=== PATIENT | female | born 1930 | race African-American/Black ===

== ENCOUNTER 2017-05-11 20:18 | Emergency (ER) | payer SELFPAY ==
[2017-05-11 20:27] VITALS: BP 105/44; PULSE 82; TEMP 97.2; BMI 19.3
--- NOTE | 2017-05-11 21:28 | PDOC ---
History of Present Illness - General History Source: Patient Exam Limitations: No Limitations - History of Present Illness Initial Comments: The patient is an 86 yo F with a past medical history significant for HTN who presents from clinic with increased BP and abnormal labs. The patient states her BP has been getting higher than her baseline. She is unaware as to which labs were found to be abnormal. She also endorses generalized weakness. The patient denies headache, nausea, vomiting, diarrhea, SOB. The patient denies frequency, dysuria. The patient denies chest pain, palpitations and lightheadedness. <OjJessica - Last Filed: 05/11/17 23:03> - General History Source: Patient <Jimmy Grady - Last Filed: 05/12/17 00:16> - General Chief Complaint: Weakness Stated Complaint: BLOOD PRESSURE PROBLEM Time Seen by Provider: 05/11/17 20:46 Past History <Imtiazjulio cJessica - Last Filed: 05/11/17 23:03> - Past Medical History Anemia: Yes HTN: Yes - Immunization History Immunization Up to Date: Yes - Psycho/Social/Smoking Cessation Hx Anxiety: No Suicidal Ideation: No Smoking History: Never smoked Have you smoked in the past 12 months: No Number of Cigarettes Smoked Daily: 0 Information on smoking cessation initiated: No Hx Alcohol Use: No Drug/Substance Use Hx: No Substance Use Type: None <FernandoJimmy ocasio - Last Filed: 05/12/17 00:16> - Past Medical History Allergies/Adverse Reactions: Allergies Allergy/AdvReac Type Severity Reaction Status Date / Time No Known Allergies Allergy Verified 05/11/17 20:27 Home Medications: Ambulatory Orders Aspirin [Aspirin EC] 81 mg PO DAILY 05/11/17 Atenolol [Tenormin -] 25 mg PO DAILY 05/11/17 Clopidogrel Bisulfate [Plavix -] 75 mg PO DAILY 05/11/17 Nifedipine [Procardia Xl] 30 mg PO DAILY 05/11/17 Review of Systems - Review of Systems Able to Perform ROS?: Yes Comments:: CONSTITUTIONAL: +generalized weakness Absent: fever, chills, diaphoresis, malaise, loss of appetite HEENT: Absent: rhinorrhea, nasal congestion, throat pain, throat swelling, difficulty swallowing, mouth swelling, ear pain, eye pain, visual Changes CARDIOVASCULAR: +high BP Absent: chest pain, syncope, palpitations, irregular heart rate, lightheadedness , peripheral edema RESPIRATORY: Absent: cough, shortness of breath, dyspnea with exertion, orthopnea, wheezing, stridor, hemoptysis GASTROINTESTINAL: Absent: abdominal pain, abdominal distension, nausea, vomiting, diarrhea, constipation, melena, hematochezia GENITOURINARY: Absent: dysuria, frequency, urgency, hesitancy, hematuria, flank pain, genital pain MUSCULOSKELETAL: Absent: myalgia, arthralgia, joint swelling SKIN: Absent: rash, itching, pallor NEUROLOGIC: Absent: headache, focal weakness or paresthesias, dizziness, unsteady gait, seizure, mental status changes, bladder or bowel incontinence PSYCHIATRIC: Absent: anxiety, depression, suicidal or homicidal ideation, hallucinations. <Jessica Mcwilliams - Last Filed: 05/11/17 23:03> *Physical Exam - Vital Signs Last Vital Signs Temp Pulse Resp BP Pulse Ox 97.2 F L 82 16 105/44 98 05/11/17 20:21 05/11/17 20:21 05/11/17 20:21 05/11/17 20:21 05/11/17 20:21 - Physical Exam Comments: GENERAL: Well developed, well nourished. Awake and alert. No acute distress. HEENT: Normocephalic, atraumatic. PERRLA, EOMI. No conjunctival pallor. Sclera are non- icteric. Moist mucous membranes. Oropharynx is clear. NECK: Supple. Full ROM. No JVD. Carotid pulses 2+ and symmetric, without bruits. No thyromegaly. No lymphadenopathy. CARDIOVASCULAR: Regular rate and rhythm. No murmurs, rubs, or gallops. Distal pulses are 2+ and symmetric. PULMONARY: No evidence of respiratory distress. Lungs clear to auscultation bilaterally. No wheezing, rales or rhonchi. ABDOMINAL: Soft. Non-tender. Non-distended. No rebound or guarding. No organomegaly. Normoactive bowel sounds. MUSCULOSKELETAL Normal range of motion at all joints. No bony deformities or tenderness. No CVA tenderness. EXTREMITIES: No cyanosis. No clubbing. No edema. No calf tenderness. SKIN: Warm and dry. Normal capillary refill. No rashes. No jaundice. NEUROLOGICAL: No gross focal neurological deficits. PSYCHIATRIC: Cooperative. Good eye contact. Appropriate mood and affect. <OjJessica - Last Filed: 05/11/17 23:03> - Vital Signs Last Vital Signs Temp Pulse Resp BP Pulse Ox 97.2 F L 82 16 105/44 98 05/11/17 20:21 05/11/17 20:21 05/11/17 20:21 05/11/17 20:21 05/11/17 20:21 <Jimmy Grady - Last Filed: 05/12/17 00:16> Heart Score/ECG Review #1 NSR @ 69 bpm. <Jessica Mcwilliams - Last Filed: 05/11/17 23:03> ED Treatment Course - LABORATORY CBC & Chemistry Diagram: 05/11/17 21:55 05/11/17 21:55 <Jessica Mcwilliams - Last Filed: 05/11/17 23:03> - LABORATORY CBC & Chemistry Diagram: 05/11/17 21:55 05/11/17 21:55 <Jimmy Grady - Last Filed: 05/12/17 00:16> Medical Decision Making - Medical Decision Making 05/11/17 23:07 Dr. Grady: The scribe's documentation has been prepared under my direction and personally reviewed by me in its entirery. I confirm that the note above accurately reflects all work, treatment, procedures, and medical decision making performed by me. 05/12/17 00:15 patient is hemodynmaically stable. Pt to follow up as outpt for further evaluation. Medicine came down to speak to family <Jimmy Grady - Last Filed: 05/12/17 00:16> *DC/Admit/Observation/Transfer - Attestations Scribe Attestion: Documentation prepared by Jessica Mcwilliams, acting as medical chief technician for Jimmy Grady MD/. <Jessica Mcwilliams - Last Filed: 05/11/17 23:03> - Discharge Dispostion Admit: No <Jimmy Grady - Last Filed: 05/12/17 00:16> Diagnosis at time of Disposition: Thrombocytosis, Anemia Leukocytosis Qualifiers: Leukocytosis type: unspecified Qualified Code(s): D72.829 - Elevated white blood cell count, unspecified - Discharge Dispostion Disposition: HOME Condition at time of disposition: Stable - Referrals Referrals: Rika Rodriguez MD [Staff Physician] - Karla Walker MD [Staff Physician] - - Patient Instructions Printed Discharge Instructions: Anemia, DI for Leukocytosis, DI for Thrombotic Thrombocytopenic Purpura Additional Instructions: Please follow up with these various doctor to further evaluate care
[2017-05-11 22:04] LABS: MCH 23.4 pg (25.7-33.7); MCHC 33.6 g/dl (32.0-36.0); MEAN CELL VOLUME 69.8 fl (80-96); RDW 26.3 % (11.6-15.6)
[2017-05-11 22:15] LABS: INR 1.48 (0.82-1.09); PROTHROMBIN TIME (PATIENT) 16.4 SEC (9.98-11.88)
[2017-05-11 22:36] LABS: ANION GAP 7 (8-16); BILIRUBIN,TOTAL 1.3 mg/dL (0.2-1.0); CO2 27 mmol/L (21-32); CREATININE 1.7 mg/dL (0.55-1.02); GLUCOSE,RANDOM 130 mg/dL (74-106); MAGNESIUM 2.2 mg/dL (1.8-2.4); SGOT/AST 32 U/L (15-37); SGPT/ALT 32 U/L (12-78); TOT PROT 7.1 g/dl (6.4-8.2)
[2017-05-11 22:38] LABS: MEAN PLT VOLUME 8.5 fl (7.5-11.1); PLATELET COUNT 1310 K/MM3 (134-434)
[2017-05-11 22:39] LABS: ALK PHOS 500 U/L (45-117); ANISOCYTOSIS 3+; CPK 77 IU/L (26-192); MICROCYTOSIS 1+; PLATELET ESTIMATE MARKEDLY INCREASED (NORMAL); POIKILOCYTOSIS 2+; POLYCHROMASIA FEW; TROPONIN I < 0.02 ng/ml (0.00-0.05)
[2017-05-11 22:40] LABS: TARGET CELLS 2+
[2017-05-11 23:05] LABS: URINE APPEARANCE CLOUDY; URINE BILIRUBIN NEGATIVE (NEGATIVE); URINE BLOOD 1+ (NEGATIVE); URINE COLOR AMBER; URINE GLUCOSE (UA) NEGATIVE (NEGATIVE); URINE KETONE NEGATIVE (NEGATIVE); URINE NITRITE NEGATIVE (NEGATIVE); URINE PROTEIN NEGATIVE (NEGATIVE)
[2017-05-11 23:07] LABS: URINE LEUK ESTERASE 2+ (NEGATIVE)
[2017-05-11 23:15] LABS: URINE BACTERIA FEW /hpf (NONE SEEN); URINE HYALINE CAST 3 /lpf; URINE MUCUS RARE; URINE RBC 3 /hpf (0-3); URINE WBC 389 /hpf (3-5)
--- NOTE | 2017-05-12 00:19 | CONSULT ---
Consult Consult Specialty:: Hospitalist - History of Present Illness History of Present Illness: Pt is an 86yo F with history of HTN, Sickle S-C disease, and suspected CKD (due to home med being enalipril with an elevated Cr with unknown baseline) who is presenting to the ED for abnormal labs from an unknown clinic in [place] for thrombrocytosis, leukocytosis, and a microcytic anemia. Pt is from [place], however frequents travel to the . At home in [place], she was taking Clopidogrel 75mg, Enalipril, and Procardia. She originally went to the [place] clinic today because she describes increased sleeping and chronic knee pain that was previously diagnosed in [place]. Pt has no complaints today. Denies headaches, n/v/c/d, weight loss, hair loss, CP/chest discomfort, SOB/difficulty breathing, lower extremity edema, abdominal pain. ER Course notable for: 1) CXR 2) EKG - normal sinus rhythm at a rate of 69bpm - History Source History Provided By: Patient, Family Member Limitations to Obtaining History: No Limitations - Past Medical History Cardio/Vascular: Yes: HTN Heme/Onc: Yes: Sickle Cell Trait (Sickle S-C) Musculoskeletal: Yes: Other (Osteoarthritis) - Past Surgical History Additional Surgical History: Denies - Alcohol/Substance Use Hx Alcohol Use: No - Smoking History Smoking history: Never smoked Have you smoked in the past 12 months: No Aproximately how many cigarettes per day: 0 Home Medications - Allergies Allergies/Adverse Reactions: Allergies Allergy/AdvReac Type Severity Reaction Status Date / Time No Known Allergies Allergy Verified 05/11/17 20:27 - Home Medications Home Medications: Ambulatory Orders Aspirin [Aspirin EC] 81 mg PO DAILY 05/11/17 Atenolol [Tenormin -] 25 mg PO DAILY 05/11/17 Clopidogrel Bisulfate [Plavix -] 75 mg PO DAILY 05/11/17 Nifedipine [Procardia Xl] 30 mg PO DAILY 05/11/17 Review of Systems Findings/Remarks: Same as HPI Physical Exam Vital Signs: Vital Signs Temperature 97.2 F L 05/11/17 20:21 Pulse Rate 82 05/11/17 20:21 Respiratory Rate 16 05/11/17 20:21 Blood Pressure 105/44 05/11/17 20:21 O2 Sat by Pulse Oximetry (%) 98 05/11/17 20:21 Constitutional: Yes: Well Nourished, No Distress, Calm Eyes: Yes: Conjunctiva Clear, EOM Intact HENT: Yes: Atraumatic, Normocephalic Neck: Yes: Supple, Trachea Midline Cardiovascular: Yes: Regular Rate and Rhythm Respiratory: Yes: Regular, CTA Bilaterally Gastrointestinal: Yes: Normal Bowel Sounds, Soft Extremities: Yes: WNL Edema: No Neurological: Yes: Alert, Oriented Psychiatric: Yes: Alert, Oriented Assessment/Plan 86yo F h/o of HTN, osteoarthritis, suspected CKD, Sickle S-C seen for leukocytosis of 24, microcytic anemia with multiple immature RBCs, and thrombocytosis. No complaints at this time. 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 Craig or Dr. Rodriguez ; information will be provided for them 2) CKD vs acute on chronic kidney disease --Cr 1.7 with unknown baseline due to no prior visits --Suspected underlying CKD due to enalipril prescription from [place] and old age --Cannot r/o SONYA due to lack of known baseline --Asymptomatic currently 3) Thrombocytosis --Recommended to continue current medication of Clopidogrel 75mg and again referral for outpatient workup 4) HTN --Recommended to continue home med management Dispo: Unnecessary to admit and referred to outpatient work-up for abnormal CBC at Dr. Craig's or Dr. Rodriguez's discretion Visit type - Emergency Visit Emergency Visit: Yes ED Registration Date: 05/11/17 Care time: The patient presented to the Emergency Department on the above date and was hospitalized for further evaluation of their emergent condition. - New Patient This patient is new to me today: Yes Date on this admission: 05/12/17 - Critical Care Critical Care patient: No
--- NOTE | 2017-05-12 15:32 | EKG ---
Test Reason : Blood Pressure : / mmHG Vent. Rate : 069 BPM Atrial Rate : 069 BPM P-R Int : 138 ms QRS Dur : 072 ms QT Int : 380 ms P-R-T Axes : 039 005 025 degrees QTc Int : 407 ms NORMAL SINUS RHYTHM NORMAL ECG NO PREVIOUS ECGS AVAILABLE Confirmed by MOSHE CLARK MD ([id number]) on 05/12/2017 3:31:33 PM Referred By: Confirmed By:MOSHE CLARK MD
== END 2017-05-12 00:43 | disposition home or self-care (01) ==
LOC: JER 20:18 → JERBED 23:32 → UNDOADMIN 23:32 → JER 05-12 00:43
DX: D47.3 Essential (hemorrhagic) thrombocythemia (principal); D64.9 Anemia, unspecified; D72.829 Elevated white blood cell count, unspecified; I10 Essential (primary) hypertension; Z79.82 Long term (current) use of aspirin
CPT/HCPCS: 36415; 71020-TC; 80053; 81003; 81015; 83690; 83735; 84484; 85025; 85610; 86850; 86900; 86901; 93005; 93010; 99283-25